=== PATIENT | male | born 1985 | race American Indian/Alaskan Native ===

== ENCOUNTER 2016-11-25 00:17 | Emergency (ER) | payer OTHER ==
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
[2016-11-25 06:29] VITALS: BP 124/79
== END 2016-11-25 06:30 | disposition home or self-care (01) ==
LOC: ED 00:17
DX: S39.012A Strain of muscle, fascia and tendon of lower back, initial encounter (principal); V49.49XA Driver injured in collision with other motor vehicles in traffic accident, initial encounter; Y93.9 Activity, unspecified; Y92.9 Unspecified place or not applicable; Y99.9 Unspecified external cause status; I50.9 Heart failure, unspecified; Z87.891 Personal history of nicotine dependence
CPT/HCPCS: 70450; 72070; 72100